=== PATIENT | male | born 1980 | race Caucasian/White ===

== ENCOUNTER 2020-03-05 15:36 | Emergency (ER) | payer OTHER, SELFPAY ==
[2020-03-05 18:18] VITALS: BP 195/124; PULSE 81; RESP 17; TEMP 36.1; O2SAT 97; BMI 38.7
--- NOTE | 2020-03-05 18:44 | ED.SKABFB ---
HPI - Skin/Abscess/Foreign Bdy General Chief complaint: Skin/Abscess/Foreign Body Stated complaint: rash Time Seen by Provider: 03/05/20 18:22 Source: patient Mode of arrival: ambulatory Limitations: no limitations History of Present Illness HPI narrative: Patient presents to ED for right posterior thigh painful that he popped that is now grown into area of erythema with some tenderness. Patient states no fever or chills. Patient denies any leg swelling or calf pain. Related Data Previous Rx's Medication Instructions Recorded cephalexin [Keflex] 500 mg PO QID #28 cap 03/05/20 doxycycline hyclate 100 mg PO BID #20 cap 03/05/20 naproxen 500 mg PO BID PRN #20 tab 03/05/20 Allergies Allergy/AdvReac Type Severity Reaction Status Date / Time No Known Allergies Allergy Verified 03/05/20 18:17 [No Known Allergies*] Review of Systems Review of Systems: Yes all other systems are reviewed and are negative Constitutional: Constitutional: Reports as per HPI and Reports no additional constitutional complaints Eyes: Eyes: Reports as per HPI and Reports no additional eye complaints ENT: Reports system reviewed and no additional complaints, except as documented and Reports as per HPI Cardiovascular: Cardiovascular: Reports as per HPI and Reports no additional cardiovascular complaints Respiratory: Respiratory: Reports as per HPI and Reports no additional respiratory complaints Gastrointestinal: Gastrointestinal: Reports as per HPI and Reports no additional gastrointestinal complaints Genitourinary: Genitourinary: Reports no additional male genitourinary complaints and Reports as per HPI Musculoskeletal: Musculoskeletal: Reports no additional musculoskeletal complaints and Reports as per HPI Neurologic: Reports system reviewed and no additional complaints, except as documented and Reports as per HPI Psychiatric: Psychiatric: Reports no additional psychiatric complaints and Reports as per HPI [facility] Past Medical History Medical History (Updated 03/06/20 @ 00:00 by Background Daemon) Diabetes HTN (hypertension) Social History Social History Advance Directives: No Advance Directives Information Provided: Yes Physical Exam Vital Signs: Vital Signs: Last Vital Signs Temp 97.0 F 03/05/20 18:18 Pulse 81 03/05/20 18:18 Resp 17 03/05/20 18:18 BP 199/125 H 03/05/20 20:00 Pulse Ox 97 03/05/20 18:18 Body Mass Index 38.7 Const: General: Physically active and acute distress Orientation/consciousness: patient oriented x3 HENMT: Head: Yes normal to inspection and Yes No palpable skull fracture present Eyes: General: appearance normal, both eyes and all related structures Neck: Neck: Yes normal visual inspection and Yes full ROM Chest: Chest palpation & inspection: normal inspection of the chest and normal palpation of entire chest wall Resp: Effort & Inspection: normal respiratory effort and able to speak in complete sentences Cardio: Jugular venous distension: no JVD Heart sounds: S1 normal heart sound present and S2 normal heart sound present GI: Inspection: Yes normal to inspection Palpation (GI): Soft to palpation, not firm, nontender, no guarding and not rigid : General: No CVA tenderness and Yes no CVA tenderness Back/Spine/Pelvis: Back: no CVA tenderness, No CVA tenderness and No back tenderness Skin: Other: Posterior thigh area of erythema with point of entry Neuro: Other: Negative for facial droop. Negative pronator drift. Negative for slurred speech. All extremities motor/neuro/and vascular exams are intact. Strength equal in all extremities. Negative Romberg General: patient oriented x3, gait normal, tone normal, moves all extremities and CN's II-XI intact bilaterally Cranial nerves: Yes CN's II-XII intact bilaterally Extrem: Other: Right posterior thigh positive for area of erythema, tenderness, and point of entry, but negative presently for any active discharge. Negative for any leg swelling or calf pain. Presentation indicates cellulitis versus early abscess. Negative for any fluctuance to indicate abscess to be ready to be drained. General: Yes normal to inspection and Yes full ROM Psych: Appearance: grossly normal and well kempt Course Course Course Narrative: Patient's physical exam indicate cellulitis/early abscess not ready to be drained. Patient's blood pressure is elevated but is neuro exam is intact. Negative for any neuro deficit. Patient was informed necessity to check for labs to make sure there is no kidney failure, check head CT imaging does no stroke, and also checked his blood test for hheart attack. 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 Patient informed if he has any symptoms to return to the ED immediately. Patient's main risk of , kidney failure, heart attack, stroke, and decreased quality of life her blood pressures not control. But patient still agree to sign out against medical advice. Reevaluation(s) Reevaluation #1: Patient will be discharged with Keflex and doxycycline. Patient educated on warm compress on area 4 times a day for 15 minutes Time: 18:51 MDM - Skin/Abscess/Foreign Bdy MDM Narrative Medical decision making narrative: Uncontrolled high blood pressure. Cellulitis and early abscess. Discharge Plan Discharge Clinical Impression: Hypertension, Cellulitis and abscess of lower extremity Patient Disposition: Left Against Medical Advice Instructions: Cellulitis (ED), Hypertension (ED) Additional Instructions: Return to the ED immediately for any headache, dizziness, blurry vision, slurred speech, paralysis of extremities, chest pain, shortness of breath, increased size of area of cellulitis, pus drainage, increased redness, calf pain, leg swelling, or any other concerning symptoms. Recommend warm compress on area 4 times a day for 15 minutes. Please follow-up with the PCP Prescriptions: New cephalexin [Keflex] 500 mg capsule 500 mg PO QID Qty: 28 RF: 0 doxycycline hyclate 100 mg capsule 100 mg PO BID Qty: 20 RF: 0 naproxen 500 mg tablet 500 mg PO BID PRN (Reason: pain) Qty: 20 RF: 0 Stand Alone Forms: Against Medical Advice Interventions: ED Discharge Assessment Last Done: 03/05/20 20:00 Discharge Date/Time: 03/05/20 20:09 Print Language: Portuguese
[2020-03-05 20:00] VITALS: BP 199/125
== END 2020-03-05 20:09 | disposition left against medical advice (07) ==
PROVIDERS: Emergency Provider Emergency Medicine
DX: L03.115 Cellulitis of right lower limb (principal); M79.651 Pain in right thigh; I10 Essential (primary) hypertension; Z79.899 Other long term (current) drug therapy
CPT/HCPCS: 99283; 99284

== ENCOUNTER 2020-03-27 17:01 | Outpatient (REF) | payer OTHER, SELFPAY | END 2020-03-27 17:02 | disposition home or self-care (01) | LOC: HO.LAB 17:01 | PROVIDERS: Visit Provider Internal Medicine | DX: Z20.822 Contact with and (suspected) exposure to COVID-19 (principal) | CPT/HCPCS: 36415; C9803; U0003 ==

== ENCOUNTER 2020-03-28 22:08 | Emergency (ER) | payer OTHER, SELFPAY ==
[2020-03-28 22:10] VITALS: BP 124/73; PULSE 75; RESP 18; TEMP 36.8; O2SAT 95; BMI 40.3
[2020-03-28 22:23] LABS: Glucose, Whole Blood 598 mg/dL (60-115)
--- NOTE | 2020-03-28 22:28 | PC.NURSE ---
Pt states that he stopped his Metformin 4 weeks ago as he heard there was a recall. Pt states he was taken off Insulin a year ago and placed on Metformin.
--- NOTE | 2020-03-28 22:40 | PC.NURSE ---
IV established, labs obtained, IVF infusing per MAR.
[2020-03-28 22:48] LABS: MANUAL DIFF FLAG NO
[2020-03-28] MEDS: 0.9 % Sodium Chloride 1,000 ML 999 ML IVCONT (22:50)
[2020-03-28 22:51] LABS: Basophils Percent Auto 0.4 % (0-2); Eosinophils Absolute Auto 0.1 X10*3/uL (0.0-0.4); Eosinophils Percent Auto 1.1 % (0-4); Hematocrit 51.2 % (42-52); Hemoglobin 17.4 g/dl (14.0-18.0); Imm Gran Abs Auto 0.03 X10*3/uL (0.00-0.03); Imm Gran Pct Auto 0.3 % (0.0-0.4); Lymphocytes Absolute Auto 2.8 X10*3/uL (1.2-4.9); Mean Corpuscular Hemoglobin 28.3 pg (27.0-33.0); Mean Corpuscular Volume 83.3 fL (80-98); Mean Platelet Volume 12.5 fL (9.4-12.4); Monocytes Absolute Auto 0.6 X10*3/uL (0.1-1.2); Monocytes Percent Auto 5.4 % (2-11); Neutrophils Absolute Auto 7.2 X10*3/uL (2.0-8.3); Neutrophils Percent Auto 66.8 % (45-73); Platelet Count 232 X10*3/uL (160-400); Red Blood Count 6.15 X10*6/uL (4.60-5.80); Red Cell Distribution Width 13.1 % (11.0-16.0); White Blood Count 10.8 X10*3/uL (4.8-10.8)
--- NOTE | 2020-03-28 23:01 | ED_ITS ---
HPI - General Adult General Chief complaint: General Medical Stated complaint: high blood sugar Time Seen by Provider: 03/28/20 22:39 Source: patient Mode of arrival: ambulatory Limitations: no limitations History of Present Illness HPI narrative: Patient comes emergency room complaining of high blood sugar. Patient's blood sugar read high at home. Patient states that he has been noncompliant with his medication. Patient is supposed to be taking metformin, but has not been taking it. Patient went to see his primary care physician, states that he started taking metformin yesterday again, his PCP started him on insulin 70/30 twice a day, he picked up his prescription earlier today. Patient is asymptomatic. MD complaint: High blood sugar Related Data Previous Rx's Medication Instructions Recorded cephalexin [Keflex] 500 mg PO QID #28 cap 03/05/20 doxycycline hyclate 100 mg PO BID #20 cap 03/05/20 naproxen 500 mg PO BID PRN #20 tab 03/05/20 Allergies Allergy/AdvReac Type Severity Reaction Status Date / Time No Known Allergies Allergy Verified 03/05/20 18:17 [No Known Allergies*] Review of Systems Review of Systems: Constitutional : No Weight loss, No Fever, No Chills, No Night Sweats, No Fatigue, No Malaise ENT/Mouth : No Hearing loss, No Ear Pain, No Nasal Congestion, No Sinus Pain, No Hoarseness, No sore throat, No Rhinorrhea, No Swallowing Difficulty Eyes: No Eye Pain, No Swelling, No Redness, No Foreign Body, No Discharge, No Vision Changes Cardiovascular : No Chest Pain, No SOB, No Dyspnea on Exertion, No Orthopnea, No Edema, No Palpitations Respiratory : No Cough, No Sputum, No Wheezing, No Smoke Exposure, No Dyspnea Gastrointestinal : No Nausea, No Vomiting, No Diarrhea, No Constipation, No abdominal Pain, No Hematochezia, No Melena Genitourinary : no irregular bleeding, No Dysuria, No Urinary Frequency, No Hematuria, No Urinary Incontinence, No Urgency, No Flank Pain, No Urinary Flow Changes, No Hesitancy Musculoskeletal : No joint pain, No Myalgias, No Joint Swelling Skin : No Skin Lesions, No rash Neuro : No Weakness, No Numbness, No Paresthesias, No Loss of Consciousness, No Dizziness, No Headache Psych : No Anxiety/Panic, No Depression, No SI/HI/AH/VH, No Social Issues, Heme/Lymph: No Bruising, No Bleeding,No Lymphadenopathy Endocrine : No Polyuria, No Polydipsia, No Temperature Intolerance [facility] Past Medical History Medical History Diabetes HTN (hypertension) Social History Social History Advance Directives: No Advance Directives Information Provided: No Physical Exam Vital Signs: Vital Signs: Last Vital Signs Temp 97.8 F 03/28/20 23:58 Pulse 68 03/29/20 01:25 Resp 20 03/29/20 01:25 BP 115/70 03/28/20 23:58 Pulse Ox 95 03/28/20 23:58 Body Mass Index 40.3 Appearance: Alert. Oriented X3. No acute distress. Eyes: Pupils equal, round and reactive to light. ENT: Pharynx normal. Neck: Normal inspection. Neck supple. No lymph nodes noted. No crepitus CVS: Normal heart rate and rhythm. Pulses normal. Normal S1 and S2 Respiratory: No respiratory distress. Breath sounds normal. No Wheezing. No rales Abdomen: Soft and nontender. No rigidity. No distention. good BS x4 Skin: Skin warm and dry. Normal skin color. Normal skin turgor. Extremities: No lower extremity edema. No lower extremity edema. No Lacerations. No Rash Neuro: Oriented X 3. No motor deficit. No sensory deficit. Moving all extermities. No slurred speech. Course Course Course Narrative: Patient's blood glucose is 134. I discussed with the patient that his creatinine is elevated. Patient states about 2 years ago he was told that his kidneys are working at ?50% or less?. Patient instructed to have close follow-up with his primary care physician and to be compliant with his medication. At this time, patient is asymptomatic. Patient's potassium dropped to 3.2 secondary to insulin use, patient was repleted with oral potassium Medical Decision Making Lab Data Result diagrams: 03/28/20 22:40 03/29/20 01:03 Labs: Lab Results 03/28/20 03/28/20 03/28/20 Range/Units 22:20 22:40 22:40 WBC 10.8 (4.8-10.8) X10*3/uL RBC 6.15 H (4.60-5.80) X10*6/uL Hgb 17.4 (14.0-18.0) g/dl Hct 51.2 (42-52) % MCV 83.3 (80-98) fL MCH 28.3 (27.0-33.0) pg MCHC 34.0 (31.0-36.0) g/dl RDW 13.1 (11.0-16.0) % Plt Count 232 (160-400) X10*3/uL MPV 12.5 H (9.4-12.4) fL Immature Gran % (Auto) 0.3 (0.0-0.4) % Neut % (Auto) 66.8 (45-73) % Lymph % (Auto) 26.0 (20-40) % [place] % (Auto) 5.4 (2-11) % Eos % (Auto) 1.1 (0-4) % Baso % (Auto) 0.4 (0-2) % Lymph # (Auto) 2.8 (1.2-4.9) X10*3/uL [place] # (Auto) 0.6 (0.1-1.2) X10*3/uL Eos # (Auto) 0.1 (0.0-0.4) X10*3/uL Baso # (Auto) 0.0 (0.0-0.2) X10*3/uL Abs Immat Gran (auto) 0.03 (0.00-0.03) X10*3/uL Absolute Neuts (auto) 7.2 (2.0-8.3) X10*3/uL Absolute Nucleated RBC 0.000 (0.0-0.012) X10*3/uL Nucleated RBC % (auto) 0.0 (0.0-0.2) /100WBC Hold Blue Top Sodium 133 L (135-145) mmol/L Potassium 3.8 (3.3-5.1) mmol/l Chloride 93 L (96-108) mmol/L Carbon Dioxide 24 (22-29) mmol/L Anion Gap 20 (12-20) BUN 65 H (9-16) mg/dL Creatinine 2.78 H (0.5-1.4) mg/dL Estim Creat Clear Calc 41.3 Estimated GFR 25 POC Glucose 598 H* (60-115) mg/dL Random Glucose 637 H* (60-115) mg/dL Calcium 8.5 (8.4-10.2) mg/dL Total Bilirubin 0.5 (0.0-1.0) mg/dL AST 18 (5-37) U/L ALT 32 (0-40) U/L Alkaline Phosphatase 105 (39-117) U/L Total Protein 7.5 (6.5-8.0) g/dL Albumin 4.3 (3.5-5.0) g/dL Acetone, Qual Negative (Negative) 03/28/20 03/29/20 03/29/20 Range/Units 22:40 00:06 01:01 WBC (4.8-10.8) X10*3/uL RBC (4.60-5.80) X10*6/uL Hgb (14.0-18.0) g/dl Hct (42-52) % MCV (80-98) fL MCH (27.0-33.0) pg MCHC (31.0-36.0) g/dl RDW (11.0-16.0) % Plt Count (160-400) X10*3/uL MPV (9.4-12.4) fL Immature Gran % (Auto) (0.0-0.4) % Neut % (Auto) (45-73) % Lymph % (Auto) (20-40) % [place] % (Auto) (2-11) % Eos % (Auto) (0-4) % Baso % (Auto) (0-2) % Lymph # (Auto) (1.2-4.9) X10*3/uL [place] # (Auto) (0.1-1.2) X10*3/uL Eos # (Auto) (0.0-0.4) X10*3/uL Baso # (Auto) (0.0-0.2) X10*3/uL Abs Immat Gran (auto) (0.00-0.03) X10*3/uL Absolute Neuts (auto) (2.0-8.3) X10*3/uL Absolute Nucleated RBC (0.0-0.012) X10*3/uL Nucleated RBC % (auto) (0.0-0.2) /100WBC Hold Blue Top SEE NOTE Sodium (135-145) mmol/L Potassium (3.3-5.1) mmol/l Chloride (96-108) mmol/L Carbon Dioxide (22-29) mmol/L Anion Gap (12-20) BUN (9-16) mg/dL Creatinine (0.5-1.4) mg/dL Estim Creat Clear Calc Estimated GFR POC Glucose 434 H* 211 H (60-115) mg/dL Random Glucose (60-115) mg/dL Calcium (8.4-10.2) mg/dL Total Bilirubin (0.0-1.0) mg/dL AST (5-37) U/L ALT (0-40) U/L Alkaline Phosphatase (39-117) U/L Total Protein (6.5-8.0) g/dL Albumin (3.5-5.0) g/dL Acetone, Qual (Negative) 03/29/20 Range/Units 01:03 WBC (4.8-10.8) X10*3/uL RBC (4.60-5.80) X10*6/uL Hgb (14.0-18.0) g/dl Hct (42-52) % MCV (80-98) fL MCH (27.0-33.0) pg MCHC (31.0-36.0) g/dl RDW (11.0-16.0) % Plt Count (160-400) X10*3/uL MPV (9.4-12.4) fL Immature Gran % (Auto) (0.0-0.4) % Neut % (Auto) (45-73) % Lymph % (Auto) (20-40) % [place] % (Auto) (2-11) % Eos % (Auto) (0-4) % Baso % (Auto) (0-2) % Lymph # (Auto) (1.2-4.9) X10*3/uL [place] # (Auto) (0.1-1.2) X10*3/uL Eos # (Auto) (0.0-0.4) X10*3/uL Baso # (Auto) (0.0-0.2) X10*3/uL Abs Immat Gran (auto) (0.00-0.03) X10*3/uL Absolute Neuts (auto) (2.0-8.3) X10*3/uL Absolute Nucleated RBC (0.0-0.012) X10*3/uL Nucleated RBC % (auto) (0.0-0.2) /100WBC Hold Blue Top Sodium 140 (135-145) mmol/L Potassium 3.2 L (3.3-5.1) mmol/l Chloride 101 (96-108) mmol/L Carbon Dioxide 27 (22-29) mmol/L Anion Gap 15 (12-20) BUN 58 H (9-16) mg/dL Creatinine 2.07 H (0.5-1.4) mg/dL Estim Creat Clear Calc 55.5 Estimated GFR 36 POC Glucose (60-115) mg/dL Random Glucose 134 H D (60-115) mg/dL Calcium 8.1 L (8.4-10.2) mg/dL Total Bilirubin (0.0-1.0) mg/dL AST (5-37) U/L ALT (0-40) U/L Alkaline Phosphatase (39-117) U/L Total Protein (6.5-8.0) g/dL Albumin (3.5-5.0) g/dL Acetone, Qual (Negative) Discharge Plan Discharge Clinical Impression: Hyperglycemia Chronic kidney disease Qualifiers: Chronic kidney disease stage: unspecified stage Qualified Code(s): N18.9 - Chronic kidney disease, unspecified Patient Disposition: Home, Self-Care Instructions: Diabetic Hyperglycemia (ED), Chronic Kidney Disease (ED) Additional Instructions: Please follow-up with your primary care physician tomorrow. If you have any worsening or new symptoms, please return to the emergency room or call 911 Prescriptions: No Action cephalexin [Keflex] 500 mg capsule 500 mg PO QID Qty: 28 RF: 0 doxycycline hyclate 100 mg capsule 100 mg PO BID Qty: 20 RF: 0 naproxen 500 mg tablet 500 mg PO BID PRN (Reason: pain) Qty: 20 RF: 0
[2020-03-28 23:04] LABS: Acetone, serum QL Negative (Negative)
[2020-03-28 23:17] LABS: Alanine Aminotransferase 32 U/L (0-40); Albumin Level 4.3 g/dL (3.5-5.0); Alkaline Phosphatase 105 U/L (39-117); Anion Gap 20 (12-20); Aspartate Amino Transferase 18 U/L (5-37); Bilirubin Total 0.5 mg/dL (0.0-1.0); Blood Urea Nitrogen 65 mg/dL (9-16); Calcium 8.5 mg/dL (8.4-10.2); Carbon Dioxide 24 mmol/L (22-29); Chloride 93 mmol/L (96-108); Creatinine Clr Calc Pharmacy 41.3; Estimated Glomerular Filt Rate 25; Glucose Random 637 mg/dL (60-115); Potassium 3.8 mmol/l (3.3-5.1); Sodium 133 mmol/L (135-145); Total Protein 7.5 g/dL (6.5-8.0)
[2020-03-28 23:58] VITALS: BP 115/70; PULSE 71; RESP 16; TEMP 36.6; O2SAT 95
[2020-03-29 00:10] LABS: Glucose, Whole Blood 434 mg/dL (60-115)
[2020-03-29] MEDS: 0.9 % Sodium Chloride 1,000 ML 999 ML IVCONT (00:14)
[2020-03-29] MEDS: Insulin Regular, Human 100 UNIT/ML 3 ML VIAL 10 UNIT IVPUSH (00:18)
--- NOTE | 2020-03-29 00:19 | PC.NURSE ---
Pt medicated with IV Insulin Humulin R, 10 units. Bar code provided by pharmacy for medication not scanningSheyla RN at bedside to verify medication and dose. IVF infusing per MAR. Pt resting in bed, reports improvement in vision, denies dizziness. Continue to monitor.
--- NOTE | 2020-03-29 01:09 | PC.NURSE ---
Pt resting in bed in NAD, denies pain/discomfort. POC 211 mg/dl. IVF infusion complete, labs obtained and sent. Pt ambulating to the bathroom with a lema/steady gait. Continue to monitor.
[2020-03-29 01:11] LABS: Glucose, Whole Blood 211 mg/dL (60-115)
[2020-03-29 01:25] VITALS: PULSE 68; RESP 20
[2020-03-29 01:49] LABS: Anion Gap 15 (12-20); Blood Urea Nitrogen 58 mg/dL (9-16); Calcium 8.1 mg/dL (8.4-10.2); Carbon Dioxide 27 mmol/L (22-29); Chloride 101 mmol/L (96-108); Creatinine Clr Calc Pharmacy 55.5; Estimated Glomerular Filt Rate 36; Glucose Random 134 mg/dL (60-115); Potassium 3.2 mmol/l (3.3-5.1); Sodium 140 mmol/L (135-145)
[2020-03-29] MEDS: Potassium Chloride ER 20 MEQ TAB.ER.PRT PO (02:12)
[2020-03-29 02:13] VITALS: BP 120/66; PULSE 71; RESP 16; O2SAT 96
--- NOTE | 2020-03-29 02:17 | PC.NURSE ---
Pt medicated with Potassium per MAR. IV removed. VSS. Pt provided with DC paperwork.
== END 2020-03-29 02:19 | disposition home or self-care (01) ==
PROVIDERS: Emergency Provider Emergency Medicine
DX: E11.65 Type 2 diabetes mellitus with hyperglycemia (principal); I10 Essential (primary) hypertension; Z79.899 Other long term (current) drug therapy
CPT/HCPCS: 36415; 80048; 80053; 82009; 82947; 85025; 96361; 96374; 99284

== ENCOUNTER 2020-12-20 13:30 | Outpatient (REF) | payer OTHER, SELFPAY ==
[2020-12-20 14:13] LABS: COVID-19 Test Negative (Negative)
== END 2020-12-20 13:31 | disposition home or self-care (01) ==
LOC: HO.LAB 13:30
PROVIDERS: Visit Provider Internal Medicine
DX: Z20.822 Contact with and (suspected) exposure to COVID-19 (principal)
CPT/HCPCS: 36415; 87635; C9803

== ENCOUNTER 2022-10-03 01:37 | Emergency (ER) | payer MEDICAID, SELFPAY ==
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
[2022-10-03 01:40] VITALS: BP 160/92; BP 175/84; PULSE 64; PULSE 70; RESP 20; TEMP 36.8; O2SAT 95; O2SAT 97; BMI 38.3
[2022-10-03 01:58] LABS: Glucose, Whole Blood 190 mg/dL (60-115)
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
[2022-10-03 03:06] VITALS: PULSE 64
--- NOTE | 2022-10-03 03:13 | PC.NURSE ---
denying pain at moment. was able to reach his brother on phone. waiting for ct result. breathing easy and moving all extremities well.
[2022-10-03 04:22] VITALS: BP 155/68; PULSE 64; RESP 18; O2SAT 96
== END 2022-10-03 04:23 | disposition home or self-care (01) ==
PROVIDERS: Emergency Provider Emergency Medicine
DX: S13.4XXA Sprain of ligaments of cervical spine, initial encounter (principal); S20.213A Contusion of bilateral front wall of thorax, initial encounter; S09.90XA Unspecified injury of head, initial encounter; R07.89 Other chest pain; R51.9 Headache, unspecified; M54.2 Cervicalgia; M54.6 Pain in thoracic spine; V43.52XA Car driver injured in collision with other type car in traffic accident, initial encounter; Y93.9 Activity, unspecified; Y92.410 Unspecified street and highway as the place of occurrence of the external cause; Y99.9 Unspecified external cause status; Z79.899 Other long term (current) drug therapy
CPT/HCPCS: 70450; 71250; 72125; 82947; 99284